=== PATIENT | male | born 1980 | race Caucasian/White ===

== ENCOUNTER 2017-10-15 17:14 | Emergency (ER) | payer SELFPAY ==
[~2017-10-15] VITALS: Ht 177.8 cm; Wt 106.6 kg
[2017-10-15] MEDS ORDERED: CYCLOBENZAPRINE10 MG PO (20:56)
[2017-10-15] MEDS ORDERED: NAPROSYN500 MG PO (20:56)
== END 2017-10-15 21:13 | disposition home or self-care (01) ==
LOC: ED 17:14
DX: S93.401A Sprain of unspecified ligament of right ankle, initial encounter (principal); S86.911A Strain of unspecified muscle(s) and tendon(s) at lower leg level, right leg, initial encounter; F17.200 Nicotine dependence, unspecified, uncomplicated; W00.0XXA Fall on same level due to ice and snow, initial encounter
CPT/HCPCS: 73610; 96372; 99283; J1885